=== PATIENT | male | born 2000 | race Caucasian/White ===

== ENCOUNTER 2022-07-31 19:44 | Emergency (ER) | payer OTHER, SELFPAY ==
[2022-07-31 20:00] VITALS: BP 143/94; PULSE 74; RESP 6; TEMP 36.6; O2SAT 97; BMI 23.7
--- NOTE | 2022-07-31 20:00 | ED_ITS ---
HPI - General Adult General Chief complaint: General Medical Stated complaint: ppd gummies, arms legs numbness Time Seen by Provider: 07/31/22 21:49 Related Data Allergies Allergy/AdvReac Type Severity Reaction Status Date / Time No Known Allergies Allergy Verified 07/31/22 20:03 [facility] Social History Social History Advance Directives: No Physical Exam ED Vital Signs: Vital Signs - 24 hr 07/31/22 23:21 Temperature 98.3 F Pulse Rate 69 Respiratory Rate 17 Blood Pressure 139/96 H Pulse Oximetry 96 Oxygen Delivery Method Room Air BMI result Body Mass Index 23.7 Course Course Course Narrative: RME: Patient is a 22-year-old male with no reported past medical history who presents emergency department for evaluation. States 2 weeks ago CBD gummy; 200mg. Has never taken these in the past. States he vomited afterwards. Reports bilateral upper and lower extremity numbness intermittently lasting 1 -2 minutes at a time and self-resolving. Also with intermittent palpitations. Denies chest pain, shortness of breath, URI symptoms, fevers, chills. Plan: CBC, CMP, EKG, TSH, B12, folate Medical Decision Making Lab Data Result diagrams: 07/31/22 20:10 07/31/22 20:10 Labs: Lab Results 07/31/22 07/31/22 07/31/22 Range/Units 20:10 20:10 20:10 WBC 7.1 (4.8-10.8) X10*3/uL RBC 5.06 (4.60-5.80) X10*6/uL Hgb 14.6 (14.0-18.0) g/dl Hct 43.3 (42.0-52.0) % MCV 85.6 (80.0-98.0) fL MCH 28.9 (27.0-33.0) pg MCHC 33.7 (31.0-36.0) g/dl RDW 11.8 (11.0-16.0) % Plt Count 176 (160-400) X10*3/uL MPV 11.7 (9.4-12.4) fL Immature Gran % (Auto) 0.1 (0.0-0.4) % Neut % (Auto) 62.0 (45-73) % Lymph % (Auto) 21.6 (20-40) % [place] % (Auto) 6.3 (2-11) % Eos % (Auto) 9.4 H (0-4) % Baso % (Auto) 0.6 (0-2) % Lymph # (Auto) 1.5 (1.2-4.9) X10*3/uL [place] # (Auto) 0.5 (0.1-1.2) X10*3/uL Eos # (Auto) 0.7 H (0.0-0.4) X10*3/uL Baso # (Auto) 0.0 (0.0-0.2) X10*3/uL Abs Immat Gran (auto) 0.01 (0.00-0.03) X10*3/uL Absolute Neuts (auto) 4.4 (2.0-8.3) x10*3/uL Absolute Nucleated RBC 0.000 (0.0-0.012) X10*3/uL Nucleated RBC % (auto) 0.0 (0.0-0.2) /100WBC Sodium 140 (135-145) mmol/L Potassium 4.0 (3.3-5.1) mmol/L Chloride 100 (96-108) mmol/L Carbon Dioxide 29 (22-29) mmol/L Anion Gap 15 (12-20) BUN 13 (9-16) mg/dL Creatinine 0.83 (0.5-1.4) mg/dL Estim Creat Clear Calc 121.4 Estimated GFR > 60 Random Glucose 111 (60-115) mg/dL Calcium 10.0 (8.4-10.2) mg/dL Magnesium 2.1 (1.6-2.6) mg/dL Total Bilirubin 1.1 H (0.0-1.0) mg/dL AST 17 (5-37) U/L ALT 14 (0-40) U/L Alkaline Phosphatase 65 (39-117) U/L Troponin I High Sens (<3.5-35.0) ng/L Total Protein 7.7 (6.5-8.0) g/dL Albumin 4.9 (3.5-5.0) g/dL Vitamin B12 649 (200-900) pg/mL Folate 9.9 (> or = 4.0) ng/mL TSH 0.65 (0.32-4.0) uIU/mL Random Cortisol ug/dL Urine Opiates Screen (Not Detect) Urine Fentanyl Screen (Not Detect) Ur Barbiturates Screen (Not Detect) Ur Phencyclidine Scrn (Not Detect) Ur Amphetamines Screen (Not Detect) U Benzodiazepines Scrn (Not Detect) Urine Cocaine Screen (Not Detect) U Marijuana (THC) Screen (Not Detect) 07/31/22 07/31/22 07/31/22 Range/Units 20:10 20:10 23:26 WBC (4.8-10.8) X10*3/uL RBC (4.60-5.80) X10*6/uL Hgb (14.0-18.0) g/dl Hct (42.0-52.0) % MCV (80.0-98.0) fL MCH (27.0-33.0) pg MCHC (31.0-36.0) g/dl RDW (11.0-16.0) % Plt Count (160-400) X10*3/uL MPV (9.4-12.4) fL Immature Gran % (Auto) (0.0-0.4) % Neut % (Auto) (45-73) % Lymph % (Auto) (20-40) % [place] % (Auto) (2-11) % Eos % (Auto) (0-4) % Baso % (Auto) (0-2) % Lymph # (Auto) (1.2-4.9) X10*3/uL [place] # (Auto) (0.1-1.2) X10*3/uL Eos # (Auto) (0.0-0.4) X10*3/uL Baso # (Auto) (0.0-0.2) X10*3/uL Abs Immat Gran (auto) (0.00-0.03) X10*3/uL Absolute Neuts (auto) (2.0-8.3) x10*3/uL Absolute Nucleated RBC (0.0-0.012) X10*3/uL Nucleated RBC % (auto) (0.0-0.2) /100WBC Sodium (135-145) mmol/L Potassium (3.3-5.1) mmol/L Chloride (96-108) mmol/L Carbon Dioxide (22-29) mmol/L Anion Gap (12-20) BUN (9-16) mg/dL Creatinine (0.5-1.4) mg/dL Estim Creat Clear Calc Estimated GFR Random Glucose (60-115) mg/dL Calcium (8.4-10.2) mg/dL Magnesium (1.6-2.6) mg/dL Total Bilirubin (0.0-1.0) mg/dL AST (5-37) U/L ALT (0-40) U/L Alkaline Phosphatase (39-117) U/L Troponin I High Sens < 3.5 (<3.5-35.0) ng/L Total Protein (6.5-8.0) g/dL Albumin (3.5-5.0) g/dL Vitamin B12 (200-900) pg/mL Folate (> or = 4.0) ng/mL TSH (0.32-4.0) uIU/mL Random Cortisol 6.2 ug/dL Urine Opiates Screen Not Detected (Not Detect) Urine Fentanyl Screen Not Detected (Not Detect) Ur Barbiturates Screen Not Detected (Not Detect) Ur Phencyclidine Scrn Not Detected (Not Detect) Ur Amphetamines Screen Not Detected (Not Detect) U Benzodiazepines Scrn Not Detected (Not Detect) Urine Cocaine Screen Not Detected (Not Detect) U Marijuana (THC) Screen POSITIVE H (Not Detect) Discharge Plan Discharge Clinical Impression: Cannabis abuse Patient Disposition: Home, Self-Care Instructions: Cannabis Abuse (ED) Additional Instructions: Stop using cannabis Follow with PCP Referrals: Marcela Quintero MD [Physician] - 1 week Interventions: ED Discharge Assessment Last Done: 08/01/22 00:01 Discharge Date/Time: 08/01/22 00:02
--- NOTE | 2022-07-31 20:03 | ECG_ITS ---
Test Reason : GENERAL MEDICAL Blood Pressure : / mmHG Vent. Rate : 080 BPM Atrial Rate : 080 BPM P-R Int : 126 ms QRS Dur : 090 ms QT Int : 364 ms P-R-T Axes : 072 063 054 degrees QTc Int : 419 ms Normal sinus rhythm Normal ECG No previous ECGs available Referred By: Selena Toribio Electronically Signed By:NYA ESCOTO MD
[2022-07-31 20:19] LABS: MANUAL DIFF FLAG NO
[2022-07-31 20:24] LABS: Basophils Percent Auto 0.6 % (0-2); Eosinophils Absolute Auto 0.7 X10*3/uL (0.0-0.4); Eosinophils Percent Auto 9.4 % (0-4); Hematocrit 43.3 % (42.0-52.0); Hemoglobin 14.6 g/dl (14.0-18.0); Imm Gran Abs Auto 0.01 X10*3/uL (0.00-0.03); Imm Gran Pct Auto 0.1 % (0.0-0.4); Lymphocytes Absolute Auto 1.5 X10*3/uL (1.2-4.9); Lymphocytes Percent Auto 21.6 % (20-40); Mean Corpuscular HGB Conc 33.7 g/dl (31.0-36.0); Mean Corpuscular Hemoglobin 28.9 pg (27.0-33.0); Mean Corpuscular Volume 85.6 fL (80.0-98.0); Mean Platelet Volume 11.7 fL (9.4-12.4); Monocytes Absolute Auto 0.5 X10*3/uL (0.1-1.2); Monocytes Percent Auto 6.3 % (2-11); Neutrophils Absolute Auto 4.4 x10*3/uL (2.0-8.3); Platelet Count 176 X10*3/uL (160-400); Red Blood Count 5.06 X10*6/uL (4.60-5.80); Red Cell Distribution Width 11.8 % (11.0-16.0); White Blood Count 7.1 X10*3/uL (4.8-10.8)
[2022-07-31 20:45] LABS: Alanine Aminotransferase 14 U/L (0-40); Albumin Level 4.9 g/dL (3.5-5.0); Alkaline Phosphatase 65 U/L (39-117); Anion Gap 15 (12-20); Aspartate Amino Transferase 17 U/L (5-37); Bilirubin Total 1.1 mg/dL (0.0-1.0); Blood Urea Nitrogen 13 mg/dL (9-16); Carbon Dioxide 29 mmol/L (22-29); Chloride 100 mmol/L (96-108); Creatinine Clr Calc Pharmacy 121.4; Estimated Glomerular Filt Rate > 60; Glucose Random 111 mg/dL (60-115); Magnesium 2.1 mg/dL (1.6-2.6); Sodium 140 mmol/L (135-145); Total Protein 7.7 g/dL (6.5-8.0)
[2022-07-31 20:52] LABS: Troponin-I High Sensitivity < 3.5 ng/L (<3.5-35.0)
[2022-07-31 21:06] LABS: TSH reflex Free T4 0.65 uIU/mL (0.32-4.0)
[2022-07-31 21:19] LABS: Folate 9.9 ng/mL (> or = 4.0); Vitamin B12 649 pg/mL (200-900)
[2022-07-31 23:03] LABS: Cortisol Random 6.2 ug/dL
[2022-07-31 23:21] VITALS: BP 139/96; PULSE 69; RESP 17; TEMP 36.8; O2SAT 96
[2022-07-31 23:44] LABS: Amphetamine Screen Urine Not Detected (Not Detect); Barbiturates, Urine Not Detected (Not Detect); Benzodiazepines Screen Urine Not Detected (Not Detect); Cannabinoid Screen Urine POSITIVE (Not Detect); Cocaine Screen Urine Not Detected (Not Detect); Fentanyl, urine Not Detected (Not Detect); Opiate Screen Urine Not Detected (Not Detect); Phencyclidine Screen Urine Not Detected (Not Detect)
--- NOTE | 2022-08-01 00:03 | ED.GENADULT ---
HPI - General Adult General Chief complaint: General Medical Stated complaint: ppd gummies, arms legs numbness Time Seen by Provider: 07/31/22 21:49 Source: patient Mode of arrival: ambulatory Limitations: no limitations History of Present Illness HPI narrative: Patient's history of ADHD multiple complaints taking cannabis last 2 weeks feels numbness all over the body tingling sensation sleeping all the time mother worried about cortisol level as it was low when he was young patient been adopted denies any significant depression Related Data Allergies Allergy/AdvReac Type Severity Reaction Status Date / Time No Known Allergies Allergy Verified 07/31/22 20:03 Review of Systems Review of Systems: Yes all other systems are reviewed and are negative [facility] Social History Social History Advance Directives: No Physical Exam ED Vital Signs: Vital Signs - 24 hr 07/31/22 20:00 07/31/22 23:21 Temperature 97.8 F 98.3 F Pulse Rate 74 69 Respiratory Rate 6 L 17 Blood Pressure 143/94 H 139/96 H Pulse Oximetry 97 96 Oxygen Delivery Method Room Air Room Air BMI result Body Mass Index 23.7 Appearance: Alert. Oriented X3. No acute distress. Eyes: PERRLA, No Nystagmus ENT: Pharynx normal. Oral Mucosa moist Neck: Normal inspection. Neck supple. CVS: Normal heart rate and rhythm. Pulses normal. Respiratory: No respiratory distress. Equal air entry bilateral, no wheezing/rales/rhonchi Abdomen: Soft and nontender. Bowel sounds are present, no mass palpable, no CVA tenderness Skin: Skin warm and dry. Normal skin color. Normal skin turgor. Extremities: No lower extremity edema. No calf tenderness Neuro: Oriented X 3. No motor deficit. No sensory deficit.No cerebellar signs , cranial nerves II-XII intact Medical Decision Making MDM Narrative Medical decision making narrative: Patient has stable vitals labs negative except for THC likely the cause for his symptoms patient advised to follow with PCP Lab Data Lab results reviewed: Yes I reviewed the patient's lab results. Result diagrams: 07/31/22 20:10 07/31/22 20:10 Labs: Lab Results 07/31/22 07/31/22 07/31/22 Range/Units 20:10 20:10 20:10 WBC 7.1 (4.8-10.8) X10*3/uL RBC 5.06 (4.60-5.80) X10*6/uL Hgb 14.6 (14.0-18.0) g/dl Hct 43.3 (42.0-52.0) % MCV 85.6 (80.0-98.0) fL MCH 28.9 (27.0-33.0) pg MCHC 33.7 (31.0-36.0) g/dl RDW 11.8 (11.0-16.0) % Plt Count 176 (160-400) X10*3/uL MPV 11.7 (9.4-12.4) fL Immature Gran % (Auto) 0.1 (0.0-0.4) % Neut % (Auto) 62.0 (45-73) % Lymph % (Auto) 21.6 (20-40) % [place] % (Auto) 6.3 (2-11) % Eos % (Auto) 9.4 H (0-4) % Baso % (Auto) 0.6 (0-2) % Lymph # (Auto) 1.5 (1.2-4.9) X10*3/uL [place] # (Auto) 0.5 (0.1-1.2) X10*3/uL Eos # (Auto) 0.7 H (0.0-0.4) X10*3/uL Baso # (Auto) 0.0 (0.0-0.2) X10*3/uL Abs Immat Gran (auto) 0.01 (0.00-0.03) X10*3/uL Absolute Neuts (auto) 4.4 (2.0-8.3) x10*3/uL Absolute Nucleated RBC 0.000 (0.0-0.012) X10*3/uL Nucleated RBC % (auto) 0.0 (0.0-0.2) /100WBC Sodium 140 (135-145) mmol/L Potassium 4.0 (3.3-5.1) mmol/L Chloride 100 (96-108) mmol/L Carbon Dioxide 29 (22-29) mmol/L Anion Gap 15 (12-20) BUN 13 (9-16) mg/dL Creatinine 0.83 (0.5-1.4) mg/dL Estim Creat Clear Calc 121.4 Estimated GFR > 60 Random Glucose 111 (60-115) mg/dL Calcium 10.0 (8.4-10.2) mg/dL Magnesium 2.1 (1.6-2.6) mg/dL Total Bilirubin 1.1 H (0.0-1.0) mg/dL AST 17 (5-37) U/L ALT 14 (0-40) U/L Alkaline Phosphatase 65 (39-117) U/L Troponin I High Sens (<3.5-35.0) ng/L Total Protein 7.7 (6.5-8.0) g/dL Albumin 4.9 (3.5-5.0) g/dL Vitamin B12 649 (200-900) pg/mL Folate 9.9 (> or = 4.0) ng/mL TSH 0.65 (0.32-4.0) uIU/mL Random Cortisol ug/dL Urine Opiates Screen (Not Detect) Urine Fentanyl Screen (Not Detect) Ur Barbiturates Screen (Not Detect) Ur Phencyclidine Scrn (Not Detect) Ur Amphetamines Screen (Not Detect) U Benzodiazepines Scrn (Not Detect) Urine Cocaine Screen (Not Detect) U Marijuana (THC) Screen (Not Detect) 07/31/22 07/31/22 07/31/22 Range/Units 20:10 20:10 23:26 WBC (4.8-10.8) X10*3/uL RBC (4.60-5.80) X10*6/uL Hgb (14.0-18.0) g/dl Hct (42.0-52.0) % MCV (80.0-98.0) fL MCH (27.0-33.0) pg MCHC (31.0-36.0) g/dl RDW (11.0-16.0) % Plt Count (160-400) X10*3/uL MPV (9.4-12.4) fL Immature Gran % (Auto) (0.0-0.4) % Neut % (Auto) (45-73) % Lymph % (Auto) (20-40) % [place] % (Auto) (2-11) % Eos % (Auto) (0-4) % Baso % (Auto) (0-2) % Lymph # (Auto) (1.2-4.9) X10*3/uL [place] # (Auto) (0.1-1.2) X10*3/uL Eos # (Auto) (0.0-0.4) X10*3/uL Baso # (Auto) (0.0-0.2) X10*3/uL Abs Immat Gran (auto) (0.00-0.03) X10*3/uL Absolute Neuts (auto) (2.0-8.3) x10*3/uL Absolute Nucleated RBC (0.0-0.012) X10*3/uL Nucleated RBC % (auto) (0.0-0.2) /100WBC Sodium (135-145) mmol/L Potassium (3.3-5.1) mmol/L Chloride (96-108) mmol/L Carbon Dioxide (22-29) mmol/L Anion Gap (12-20) BUN (9-16) mg/dL Creatinine (0.5-1.4) mg/dL Estim Creat Clear Calc Estimated GFR Random Glucose (60-115) mg/dL Calcium (8.4-10.2) mg/dL Magnesium (1.6-2.6) mg/dL Total Bilirubin (0.0-1.0) mg/dL AST (5-37) U/L ALT (0-40) U/L Alkaline Phosphatase (39-117) U/L Troponin I High Sens < 3.5 (<3.5-35.0) ng/L Total Protein (6.5-8.0) g/dL Albumin (3.5-5.0) g/dL Vitamin B12 (200-900) pg/mL Folate (> or = 4.0) ng/mL TSH (0.32-4.0) uIU/mL Random Cortisol 6.2 ug/dL Urine Opiates Screen Not Detected (Not Detect) Urine Fentanyl Screen Not Detected (Not Detect) Ur Barbiturates Screen Not Detected (Not Detect) Ur Phencyclidine Scrn Not Detected (Not Detect) Ur Amphetamines Screen Not Detected (Not Detect) U Benzodiazepines Scrn Not Detected (Not Detect) Urine Cocaine Screen Not Detected (Not Detect) U Marijuana (THC) Screen POSITIVE H (Not Detect) Discharge Plan Discharge Clinical Impression: Cannabis abuse Patient Disposition: Home, Self-Care Instructions: Cannabis Abuse (ED) Additional Instructions: Stop using cannabis Follow with PCP Referrals: Marcela Quintero MD [Physician] - 1 week Discharge Date/Time: 08/01/22 00:02
== END 2022-08-01 00:02 | disposition home or self-care (01) ==
PROVIDERS: Nurse Practitioner Family; Emergency Provider Internal Medicine; PCP Family Medicine
DX: F12.10 Cannabis abuse, uncomplicated (principal); R20.2 Paresthesia of skin; R20.0 Anesthesia of skin; F90.9 Attention-deficit hyperactivity disorder, unspecified type
CPT/HCPCS: 36415; 80053; 80307; 82533; 82607; 82746; 83735; 84443; 84484; 85025; 93005; 99283; 99284

== ENCOUNTER 2022-09-02 12:24 | Outpatient (REF) | payer OTHER, SELFPAY ==
[2022-09-02 14:22] LABS: Hematocrit 42.8 % (42.0-52.0); Hemoglobin 14.1 g/dl (14.0-18.0); Mean Corpuscular HGB Conc 32.9 g/dl (31.0-36.0); Mean Corpuscular Hemoglobin 28.7 pg (27.0-33.0); Mean Corpuscular Volume 87.2 fL (80.0-98.0); Mean Platelet Volume 12.7 fL (9.4-12.4); Platelet Count 163 X10*3/uL (160-400); Red Blood Count 4.91 X10*6/uL (4.60-5.80); White Blood Count 6.2 X10*3/uL (4.8-10.8)
[2022-09-02 14:45] LABS: Alanine Aminotransferase 16 U/L (0-40); Albumin Level 4.9 g/dL (3.5-5.0); Alkaline Phosphatase 72 U/L (39-117); Anion Gap 12 (12-20); Aspartate Amino Transferase 17 U/L (5-37); Bilirubin Total 0.3 mg/dL (0.0-1.0); Blood Urea Nitrogen 11 mg/dL (9-16); Calcium 9.9 mg/dL (8.4-10.2); Carbon Dioxide 30 mmol/L (22-29); Chloride 102 mmol/L (96-108); Cholesterol 170 mg/dL; Estimated Glomerular Filt Rate > 60; Glucose Fasting 94 mg/dL (60-99); HDL Cholesterol 48 mg/dL; LDL Cholesterol Calculated 109 mg/dl; Potassium 4.3 mmol/L (3.3-5.1); Sodium 140 mmol/L (135-145); Total Protein 7.4 g/dL (6.5-8.0); Triglycerides 65 mg/dL
== END 2022-09-02 12:25 | disposition home or self-care (01) ==
LOC: HO.WFDLDS 12:24
PROVIDERS: Visit Provider Nurse Practitioner Family
DX: Z00.00 Encounter for general adult medical examination without abnormal findings (principal)
CPT/HCPCS: 36415; 80053; 80061; 85027

== ENCOUNTER 2023-02-19 23:36 | Emergency (ER) | payer OTHER, SELFPAY ==
[2023-02-19 23:47] VITALS: BP 134/85; PULSE 76; RESP 16; TEMP 36.4; O2SAT 99; BMI 25.0
--- NOTE | 2023-02-20 00:22 | ED_ITS ---
HPI - General Adult General Chief complaint: General Medical Stated complaint: CRISIS,-SI/-HI PER EMS Time Seen by Provider: 02/20/23 00:13 Source: patient Mode of arrival: EMS History of Present Illness HPI narrative: A 22-year-old male arrives via EMS and denies any suicidal or homicidal ideation, states he has never exhibited thoughts to harm himself and has never been admitted for this. Patient denies any recent drug use in states that this all started when his girlfriend told him that he was controlling. He states that he call the ambulance and then she spoke and that he got into the ambulance because that is what she wanted. When he is asked where he will go if he is discharge he states that he plans to go to his mother's house. He has no acute complaints fevers, shortness of breath, abdominal pain. Related Data Home Medications Medication Instructions Recorded Confirmed bupropion HCl 150 mg 24 hr tablet, 150 mg PO QAM depressive disorder 02/20/23 02/20/23 extended release Allergies Allergy/AdvReac Type Severity Reaction Status Date / Time No Known Allergies Allergy Verified 11/16/22 14:18 Review of Systems Review of Systems: Pertinent positives and negatives as stated in HPI [facility] Past Medical History Source: nursing notes reviewed Social History Social History Housing: Apartment Second Hand Smoke Exposure: No Advance Directives: No Advance Directives Information Provided: Yes service: No Current occupational status: disabled Current occupational exposures/hazards: No Physical Exam ED Vital Signs: Vital Signs - 24 hr 02/19/23 23:47 Temperature 97.6 F Pulse Rate 76 Respiratory Rate 16 Blood Pressure 134/85 Pulse Oximetry 99 Oxygen Delivery Method Room Air BMI result Body Mass Index 25.0 VITAL SIGNS: Reviewed. GENERAL: Well developed, well nourished, in no acute distress. HEAD: Normocephalic/atraumatic EYES: PERRLA, EOMI EARS: Ext canals without abnormality NOSE: Nares patent bilateral OROPHARYNX: no oral lesions noted, posterior pharynx clear NECK: Supple, no adenopathy LUNGS: Normal breath sounds. No adventitious sounds or accessory muscle use. SpO2<99> CARDIOVASCULAR: Regular rate and rhythm without noted murmurs ABDOMEN: Soft, non-tender, non-distended with bowel sounds. MUSCULOSKELETAL: No tenderness, deformities, or effusions noted on gross inspection. EXTREMITIES: No cyanosis, clubbing or edema. SKIN: Inspection of the skin reveals no rashes NEUROLOGIC: Alert and oriented x 4. Strength and sensation to light touch were grossly intact x 4. PSYCH: nml affect Medical Decision Making Medical Decision Making MDM Narrative: 22-year-old male without any psych history and denies SI/HI/AVH. Patient is otherwise cleared for discharge and his mother will be picking him up. Differential Diagnosis Please see the discussion above Discharge Plan Discharge Clinical Impression: Encounter for medical assessment Patient Disposition: Home, Self-Care Instructions: Normal Exam (ED) Additional Instructions: Continue to take home medications as prescribed. Return to the ER for any concerns. Prescriptions: No Action bupropion HCl 150 mg tablet extended release 24 hr 150 mg PO QAM Referrals: Daljit Sibley MD [Primary Care Provider] - Interventions: ED Discharge Assessment Last Done: 02/20/23 00:31 Discharge Date/Time: 02/20/23 00:36
== END 2023-02-20 00:36 | disposition home or self-care (01) ==
PROVIDERS: Emergency Provider Student in an Organized Health Care Education/Training Program; PCP Family Medicine
DX: Z03.89 Encounter for observation for other suspected diseases and conditions ruled out (principal); F41.9 Anxiety disorder, unspecified; Z79.899 Other long term (current) drug therapy
CPT/HCPCS: 99282